=== PATIENT | female | born 1995 | race Caucasian/White ===

== ENCOUNTER 2018-04-07 18:27 | Emergency (ER) | payer OTHER ==
[~2018-04-07] VITALS: Ht 160 cm; Wt 55.8 kg
[~2018-04-07 18:27] MED LIST: ACET-2619 PO
[2018-04-07 18:36] VITALS: BP 145/65
--- NOTE | 2018-04-07 18:50 | NUR ---
PATIENT PRESENTS TO ED WITH c/o right ankle pain x 2 days. pt reports that she was moving a pallet of inventory and she hit her leg against it. Noticed swelling and bruising of the ankle last night, applied icyhot and the swelling has gone down. right ankle appears with possible swelling, but large bruise over the interior portion of the right ankle. cap refill less than 3 seconds, pedal pulses palpable +2. ambulatory w/ steady gait. PATIENT STATES PAIN OF 8/10 AT THIS TIME; VSS; PATIENT POSITIONED FOR COMFORT; HOB ELEVATED; BEDRAILS UP X2; BED DOWN. ER MD MADE AWARE OF PT STATUS.
--- NOTE | 2018-04-07 19:18 | NUR ---
PT RESTING IN BED, FAMILY AT BEDSIDE. VITALS STABLE.
--- NOTE | 2018-04-07 19:23 | NUR ---
REPORT GIVEN TO [employer] SERVICE ADVISOR NURSE FOR CONTINUE OF CARE.
--- NOTE | 2018-04-07 20:32 | NUR ---
ICE PACKS TO RIGHT ANKLE. PT TOLERATED WELL.
--- NOTE | 2018-04-07 20:53 | NUR ---
Dr. Cummins evaluating patient at bedside.
[2018-04-07] MEDS ORDERED: KETOROLAC 30 MG/ML VIAL IM ONE (21:00)
--- NOTE | 2018-04-07 21:07 | NUR ---
paint prep technician at bedside.
[2018-04-07 21:50] VITALS: BP 124/73
--- NOTE | 2018-04-07 21:50 | NUR ---
Patient discharged with v/s stable. Written and verbal after care instructions given and explained. Patient alert, oriented and verbalized understanding of instructions. Ambulatory on crutches with steady gait. All questions addressed prior to discharge. ID band removed. Patient advised to follow up with PMD. Rx of Naproxen given. Patient educated on indication of medication including possible reaction and side effects. Opportunity to ask questions provided and answered. Good return demo on crutch training.
== END 2018-04-07 21:50 | disposition home or self-care (01) ==
LOC: MED 18:27
DX: S93.401A Sprain of unspecified ligament of right ankle, initial encounter (principal); Z79.1 Long term (current) use of non-steroidal anti-inflammatories (NSAID); X58.XXXA Exposure to other specified factors, initial encounter; Y93.89 Activity, other specified; Y92.89 Other specified places as the place of occurrence of the external cause; Y99.8 Other external cause status
CPT/HCPCS: 73610; 81002; 81025; 96372; 99284; J1885; Q0092

== ENCOUNTER 2022-09-11 11:10 | Emergency (ER) | payer OTHER ==
[~2022-09-11] VITALS: Ht 154.9 cm; Wt 61.2 kg
[2022-09-11 11:15] VITALS: BP 107/72
--- NOTE | 2022-09-11 11:21 | NUR ---
DR ALDANA AT BEDSIDE FOR EVAL
--- NOTE | 2022-09-11 11:21 | NUR ---
26 Y/O FEMALE BIBA FROM HOME C/O RIGHT FLANK PAIN RADIATING TO THE BACK AND RIGHT THIGH X2DAYS INTERMITTENT WITH 1 EPISODE OF NV. [id number], 7 WEEKS , LMP: 07/08/22. DENIES ANY VAGINAL BLEEDING, DISCHARGE. NKA PMH: DENIES
--- NOTE | 2022-09-11 11:25 | NUR ---
PT AMBULATED WITH STEADY GAIT TO BATHROOM
--- NOTE | 2022-09-11 11:32 | NUR ---
URINE WALKED AND HANDED TO [employer] TECH
[2022-09-11] MEDS ORDERED: ACETAMINOPHEN EXTRA STRENGTH 500 MG TAB PO ONE (11:35)
[2022-09-11 11:39] LABS: APPEARANCE,URINE HAZY (CLEAR); BILIRUBIN,URINE NEGATIVE (NEGATIVE); BLOOD, URINE NEGATIVE (NEGATIVE); COLOR,URINE YELLOW (YELLOW); LEUKOCYTE ESTERASE ,URINE 1+ (NEGATIVE); NITRITE, URINE NEGATIVE (NEGATIVE); UGLUCOSE NEGATIVE (NEGATIVE)
[2022-09-11 11:44] LABS: BASOPHILS % (AUTO) 0.6 % (0.0-2.0); EOSINOPHILS % (AUTO) 0.6 % (0.0-4.0); HEMATOCRIT 35.7 % (36-48); LYMPHOCYTES # (AUTO) 1.7 K/uL (2.5-16.5); LYMPHOCYTES % (AUTO) 28.1 % (20.5-51.1); MEAN CORPUSCULAR HEMOGLOBIN 30 pg (27-31); MEAN CORPUSCULAR HGB CONC 34 g/dL (33-37); MEAN CORPUSCULAR VOLUME 89.3 fL (80-94); MONOCYTES # (AUTO) 0.4 K/uL (0.8-1.0); MONOCYTES % (AUTO) 7.2 % (1.7-9.3); NEUTROPHILS # (AUTO) 3.9 K/uL (1.8-7.7); NEUTROPHILS % (AUTO) 63.5 % (42.2-75.2); PLATELET COUNT (AUTO) 314 K/uL (140-450); WHITE BLOOD COUNT (AUTO) 6.1 K/uL (4.8-10.8)
[2022-09-11 11:56] LABS: RBC,URINE 0-5 /HPF (0-5); WBC,URINE 0-5 /HPF (0-5)
[2022-09-11 11:59] LABS: ALBUMIN 4.3 g/dL (3.4-5.0); ANION GAP 12.4 (8-16); CARBON DIOXIDE 25.3 mmol/L (21-32); CREATININE 0.5 mg/dL (0.6-1.3); POTASSIUM 3.7 mmol/L (3.5-5.1); TOTAL BILIRUBIN 0.3 mg/dL (0.0-1.0)
--- NOTE | 2022-09-11 12:05 | NUR ---
Ultrasound at bedside.
[2022-09-11] MEDS ORDERED: ONDA-188 PO (13:40)
[2022-09-11] MEDS ORDERED: ACET-10509 PO (13:40)
[2022-09-11 14:26] VITALS: BP 122/71
--- NOTE | 2022-09-11 14:26 | NUR ---
Patient discharged with v/s stable. Written and verbal after care instructions FOR ABD PAIN DURING given and explained. Patient alert, oriented and verbalized understanding of instructions. Ambulatory with steady gait. All questions addressed prior to discharge. ID band removed. Patient advised to follow up with PMD. Rx of TYLENOL XTRA STRENGTH AND ZOFRAN given. Opportunity to ask questions provided and answered.
== END 2022-09-11 14:26 | disposition home or self-care (01) ==
LOC: MED 11:10
DX: O26.891 Other specified pregnancy related conditions, first trimester (principal); N83.201 Unspecified ovarian cyst, right side; Z3A.01 Less than 8 weeks gestation of pregnancy
CPT/HCPCS: 36415; 76801; 80053; 81001; 81025; 84702; 85025; 87086; 99284; Q0092